=== PATIENT | female | born 1980 | race Caucasian/White ===

== ENCOUNTER 2019-09-29 23:45 | Emergency (ER) | payer SELFPAY ==
[~2019-09-29] VITALS: Ht 167.6 cm; Wt 72.6 kg
[2019-09-29 23:57] VITALS: BP 111/56
--- NOTE | 2019-09-30 00:15 | NUR ---
PT TO [facility]. PT CARE TO BRINA RAYMUNDO
--- NOTE | 2019-09-30 00:33 | NUR ---
PT DRANK 12 BEERS THIS EVENING AND NOW HAS EPIGASTRIC PAIN 12/24. SHE SAYS THIS ALWAYS HAPPENS WHEN SHE DRINKS BEER. DENIES N/V/D. PAIN IS SHARP AND IT COMES AND GOES. [facility] NO MED HX
[2019-09-30] MEDS ORDERED: PANTOPRAZOLE 40 MG INJ VIAL IVP ONE (00:35)
[2019-09-30] MEDS ORDERED: NACL 0.9% 1,000 ML IV ONE (00:35)
[2019-09-30 00:47] VITALS: BP 111/56
--- NOTE | 2019-09-30 00:47 | NUR ---
PT REFUSED IV AND IV MED. PT DISCHARGED HOME BUT SHE REFUSED TO TAKE PRESCRIPTION HOME, STATING "I DON'T TAKE MEDS".
--- NOTE | 2019-09-30 00:47 | NUR ---
Patient discharged with v/s stable. Written and verbal after care instructions given and explained. Patient verbalized understanding. Ambulatory with steady gait. All questions addressed prior to discharge. Advised to follow up with PMD.
== END 2019-09-30 00:52 | disposition home or self-care (01) ==
LOC: MED 23:45
DX: K29.70 Gastritis, unspecified, without bleeding (principal)
CPT/HCPCS: 99283